=== PATIENT | female | born 1950 | race Caucasian/White ===

== ENCOUNTER 2020-08-04 17:40 | Emergency (ER) | payer MEDICARE, OTHER ==
[2020-08-04] MEDS ORDERED: NORCO 5-325 TA1 EACH PO (19:07)
== END 2020-08-04 19:21 | disposition home or self-care (01) ==
LOC: FER 17:40
DX: S82.65XA Nondisplaced fracture of lateral malleolus of left fibula, initial encounter for closed fracture (principal); I10 Essential (primary) hypertension; Z88.0 Allergy status to penicillin; W19.XXXA Unspecified fall, initial encounter; Y92.009 Unspecified place in unspecified non-institutional (private) residence as the place of occurrence of the external cause
CPT/HCPCS: 73610

== ENCOUNTER 2021-02-07 21:22 | Emergency (ER) | payer MEDICARE ==
[~2021-02-07 21:22] MED LIST: NORCO 5-325 TA1 EACH PO
[2021-02-08] MEDS ORDERED: PEPCID AC20 MG PO (00:42)
[2021-02-08] MEDS ORDERED: PREDNISONE 20MG20 MG PO (00:42)
== END 2021-02-08 00:56 | disposition home or self-care (01) ==
LOC: FER 21:22
DX: L50.9 Urticaria, unspecified (principal); I10 Essential (primary) hypertension; Z88.0 Allergy status to penicillin; Z88.8 Allergy status to other drugs, medicaments and biological substances; Z79.82 Long term (current) use of aspirin; Z79.02 Long term (current) use of antithrombotics/antiplatelets
CPT/HCPCS: 99282; J1100